=== PATIENT | female | born 1995 | race Caucasian/White ===

== ENCOUNTER → 2016-09-11 | Outpatient (CLI) | payer OTHER ==
[~2016-09-11] MED LIST: MACROBID 100 M100 MG PO; PRENATAL VITAMIN PO; TYLENOL 325MG325 MG PO
== END ==
LOC: CT 12:50
DX: J32.9 Chronic sinusitis, unspecified (principal); J34.3 Hypertrophy of nasal turbinates; R51 Headache; R09.82 Postnasal drip; R09.81 Nasal congestion; J34.2 Deviated nasal septum
CPT/HCPCS: 70486

== ENCOUNTER → 2016-10-15 | Outpatient (CLI) | payer OTHER | LOC: SLEEP 21:30 | DX: G47.33 Obstructive sleep apnea (adult) (pediatric) (principal) | CPT/HCPCS: 95810 ==

== ENCOUNTER 2016-10-27 07:48 | Emergency (ER) | payer OTHER ==
[2016-10-27 09:07] LABS: HEMOGLOBIN 12.9 gm/dl (12.3-15.3); RED BLOOD COUNT 4.89 M/UL (4.00-5.10); WHITE BLOOD COUNT 7.7 K/UL (4.5-11.0)
[2016-10-27 09:24] LABS: BUN/CREATININE RATIO 18 (0-10)
[2017-04-10] MEDS ORDERED: PRENATAL VITAMIN PO (03:23)
[2017-04-10] MEDS ORDERED: TYLENOL 325MG325 MG PO (16:33)
[2017-04-10] MEDS ORDERED: MACROBID 100 M100 MG PO (16:34)
== END 2016-10-27 13:10 | disposition home or self-care (01) ==
LOC: ER1 07:48
PROVIDERS: Physician Assistant
DX: N39.0 Urinary tract infection, site not specified (principal); K21.9 Gastro-esophageal reflux disease without esophagitis; Z90.49 Acquired absence of other specified parts of digestive tract; Z91.040 Latex allergy status; Z79.899 Other long term (current) drug therapy
CPT/HCPCS: 36415; 80053; 81001; 83690; 84703; 85025; 87086; 96360; 96361; 99284; J7050; Q9962

== ENCOUNTER 2020-09-16 20:46 | Emergency (ER) | payer OTHER ==
[~2020-09-16 20:46] MED LIST changes: +K-DUR TAB 20 M20 MEQ PO; +NORCO 5-325 TA1 EACH PO; +ZOFRAN4 MG PO
[2020-09-16 21:38] LABS: HEMOGLOBIN 13.2 gm/dl (12.3-15.3); RED BLOOD COUNT 4.2 M/UL (4.00-5.10); WHITE BLOOD COUNT 8.8 K/UL (4.5-11.0)
[2020-09-16 21:48] LABS: BUN/CREATININE RATIO 15 (0-10)
[2020-09-17] MEDS ORDERED: IMITREX50 MG PO (01:38)
[2020-09-17] MEDS ORDERED: MACRODANTIN100 MG PO (01:38)
[2020-09-17] MEDS ORDERED: ZOFRAN 4 MG TAB4 MG PO (01:38)
== END 2020-09-17 03:05 | disposition home or self-care (01) ==
LOC: ER1 20:46
PROVIDERS: Emergency Medicine
DX: G43.909 Migraine, unspecified, not intractable, without status migrainosus (principal); N39.0 Urinary tract infection, site not specified; F17.210 Nicotine dependence, cigarettes, uncomplicated
CPT/HCPCS: 70496; 80053; 81001; 84703; 85025; 96374; 96375; 99284; J0780; J1885; J2060; Q9967

== ENCOUNTER → 2021-04-16 | Outpatient (CLI) | payer OTHER ==
[~2021-04-16] MED LIST changes: +IMITREX50 MG PO; +MACRODANTIN100 MG PO; +ZOFRAN 4 MG TAB4 MG PO
== END ==
LOC: HEART 5 08:00
DX: R00.2 Palpitations (principal); R07.9 Chest pain, unspecified; R42 Dizziness and giddiness

== ENCOUNTER 2021-07-28 17:35 | Emergency (ER) | payer OTHER ==
[2021-07-28 19:16] LABS: HEMOGLOBIN 14.1 gm/dl (12.3-15.3); RED BLOOD COUNT 4.55 M/UL (4.00-5.10); WHITE BLOOD COUNT 4.6 K/UL (4.5-11.0)
[2021-07-28 19:42] LABS: BUN/CREATININE RATIO 16 (0-10)
[2021-07-28] MEDS ORDERED: PROVENTIL HFA6.7 GM INH (20:35)
[2021-07-28] MEDS ORDERED: ZOFRAN ODT 4 MG4 MG PO (20:35)
[2021-07-28] MEDS ORDERED: LODINE CAP 300300 MG PO (20:35)
== END 2021-07-28 20:50 | disposition home or self-care (01) ==
LOC: ER1 17:35
PROVIDERS: Physician Assistant
DX: U07.1 COVID-19 (principal); F17.210 Nicotine dependence, cigarettes, uncomplicated
CPT/HCPCS: 0240U; 71045; 80048; 81001; 83735; 84703; 85025; 87081; 87086; 87880; 96374; 99283; J1885